=== PATIENT | male | born 2000 | race Caucasian/White ===

== ENCOUNTER 2022-01-20 06:22 | Day surgery (SDC) | payer BC ==
[2022-01-15 11:50] VITALS: BMI 21.6
[2022-01-20] MEDS ORDERED: AFRIN NASAL MIST 15 ML BOT ONE ×2 (06:33→07:36)
[2022-01-20] MEDS ORDERED: Lidocaine 1% w/Epinephrine 1:100K 20 ML VIAL ONE (07:36)
[2022-01-20] MEDS ORDERED: Midazolam HCl 2 mg/2 ml Vial ONE (07:42)
[2022-01-20] MEDS ORDERED: HYDROmorphone 0.5 MG/0.5 ML SYRINGE ONE (07:42)
[2022-01-20] MEDS ORDERED: Fentanyl 250 MCG/5 ML VIAL ONE (07:42)
[2022-01-20] MEDS ORDERED: Dexamethasone 20 MG/5 ML VIAL ONE (07:43)
[2022-01-20] MEDS ORDERED: Lidocaine 1% PF 5 ML VIAL ONE (07:43)
[2022-01-20] MEDS ORDERED: PROPOFOL 200 MG/20 ML VIAL ONE (07:43)
[2022-01-20] MEDS ORDERED: Ondansetron PF 4 MG/2 ML Vial ONE (07:43)
== END 2022-01-20 09:51 | disposition home or self-care (01) ==
LOC: SDC 06:22
PROVIDERS: ATTEND Otolaryngology Plastic Surgery within the Head & Neck
DX: J32.1 Chronic frontal sinusitis (principal); J30.89 Other allergic rhinitis; B48.8 Other specified mycoses; J33.8 Other polyp of sinus; J34.3 Hypertrophy of nasal turbinates; J34.89 Other specified disorders of nose and nasal sinuses; F17.200 Nicotine dependence, unspecified, uncomplicated; Z98.890 Other specified postprocedural states
CPT/HCPCS: 87070; 87102; 87205; 87206; 88304; C2625; J1100; J1170; J2250; J2405; J2704; J3010